=== PATIENT | male | born 1960 | race Caucasian/White ===

== ENCOUNTER 2017-04-30 22:09 | Emergency (ER) | payer OTHER ==
[~2017-04-30] VITALS: Ht 162.6 cm; Wt 72.6 kg
[2017-04-30] MEDS ORDERED: POLYMYXIN B/TMP10 ML OPHTHALMIC (22:41)
[2017-04-30 22:48] VITALS: BP 154/97
== END 2017-04-30 22:49 | disposition home or self-care (01) ==
LOC: M.ERS 22:09
DX: T15.82XA Foreign body in other and multiple parts of external eye, left eye, initial encounter (principal); X58.XXXA Exposure to other specified factors, initial encounter; Y93.89 Activity, other specified; Y92.89 Other specified places as the place of occurrence of the external cause; Y99.8 Other external cause status

== ENCOUNTER 2017-06-23 19:22 | Emergency (ER) | payer OTHER ==
[~2017-06-23] VITALS: Ht 165.1 cm; Wt 72.6 kg
[~2017-06-23 19:22] MED LIST: POLYMYXIN B/TMP10 ML OPHTHALMIC
[2017-06-23 19:36] VITALS: BP 148/97
[2017-06-23] MEDS ORDERED: KEFLEX500 M1 PO (20:15)
== END 2017-06-23 20:23 | disposition home or self-care (01) ==
LOC: M.ERS 19:22
DX: T15.11XA Foreign body in conjunctival sac, right eye, initial encounter (principal); E78.00 Pure hypercholesterolemia, unspecified; W22.8XXA Striking against or struck by other objects, initial encounter; Y93.89 Activity, other specified; Y92.89 Other specified places as the place of occurrence of the external cause; Y99.8 Other external cause status